=== PATIENT | male | born 1975 | race Caucasian/White ===

== ENCOUNTER → 2017-08-16 07:56 | Outpatient (CLI) | payer MEDICAID ==
[2016-01-02 12:28] VITALS: BMI 56.6
[~2017-08-16 07:56] MED LIST: COREG25 MG PO; FUROSEMIDE20 MG PO; LISINOPRIL5 MG PO; POTASSIUM CHLOR8 ME1 PO
== END | disposition home or self-care (01) ==
LOC: D.RT 07:56
DX: R06.02 Shortness of breath (principal)

== ENCOUNTER → 2017-09-14 09:53 | Outpatient (CLI) | payer MEDICAID ==
[2016-01-02 12:28] VITALS: BMI 56.6
--- NOTE | ~2017-09-14 | EC ---
PATIENT:RJ MAST DATE OF SERVICE: 09/14/17 SEX: M MEDICAL RECORD: [id number] DATE OF : [birth year] [facility] AGE OF PATIENT: 42 ADMISSION DATE: 09/14/17 REFERRING PHYSICIAN: INTERPRETING PHYSICIAN: MARYANN SHAW MD ECHOCARDIOGRAM REPORT ECHO CHARGES 4 ECHO COMPLETE Date: 09/14 CLINICAL DIAGNOSIS: DYSPNEA/HTN/CHF/CARDIOMYOPATHY ECHOCARDIOGRAPHIC MEASUREMENTS (adult normal given) AC root (d.<3.7cm) 3.4 cm LV Septum d (<1.2 cm> 1.7 cm Valve Excursion 2.0 cm LV Septum (systole) 2.3 cm Left Atria (s.<4.0cm> 3.8 cm LVPW d(<1.2cm) 1.6 cm RV (d.<2.3cm) 2.3 cm LVPW (sytole) 2.3 cm LV diastole(<5.6CM) 6.3 cm MV E-F(>70mm/sec) cm LV systole 4.5 cm LVOT Diameter 2.2 cm MV exc.(>10mm) cm Est.ejection fraction (50-75%) % DOPPLER: LVIT cm/sec A 73.0 cm/sec E 107 cm/sec LA cm/sec RVSP 18.4 mmHg LVOT 107 cm/sec AOP1/2T m/s Asc. Ao 208 cm/sec RVOT 118 cm/sec RA cm/sec PA 175 cm/sec AV Gradient Peak 17.3 mmHg AV Mean 10.4 mmHg AV Area 1.9 cm MV Gradient Peak 5.1 mmHg MV Mean 2.1 mmHg MV Area cm COMMENTS: Private Duty Nurse: Kandis BRONSON Metabolic Specialist: Jean Shaw TAPE# PACS Pericardial Effusion N DATE OF SERVICE: 09/14/2017 PROCEDURE: Transthoracic echocardiogram. FINDINGS: This was a very difficult imaging on this patient. Endocardial structures and valvular structures are difficult to visualize. The left ventricle appears to be overall normal in function, possibly mildly dilated. Again, endocardial surface is not well visualized. The overall aortic and mitral valve are grossly normal by Doppler interrogation as well as ECHOCARDIOGRAM REPORT [id number] RJ MAST tricuspid and pulmonary valves were grossly normal. There is no obvious pericardial effusion. Again, it would be reasonable to repeat this study with contrast enhancement if it was difficult visualization because of the patient's habitus. He does have a history of cardiomyopathy. Overall, the function on this patient appears to be grossly normal. I do not see any obvious wall motion abnormalities. CONCLUSION: The patient has evidence of mild hypertensive heart disease and mildly dilated left ventricle. May be reasonable to go forward with contrast at echocardiogram for better visualization. TRANSINT:[id number] Voice Confirmation ID: [id number] DOCUMENT ID: [id number] MARYANN SHAW MD at 0719 CC: [id number] DICTATION DATE: 09/18/17 1053 ELECTRICIAN TELEPHONE: 09/18/17 1312 DEP CLI 09/14/17 [id number] [place] [address]
== END | disposition home or self-care (01) ==
LOC: D.ECHO 09:53
DX: R06.00 Dyspnea, unspecified (principal); I10 Essential (primary) hypertension; I50.9 Heart failure, unspecified; I42.9 Cardiomyopathy, unspecified

== ENCOUNTER 2018-03-25 21:10 | Emergency (ER) | payer MEDICAID ==
[~2018-03-25] VITALS: Ht 190.5 cm; Wt 190.9 kg
[2018-03-25 21:31] VITALS: Ht 190.5 cm; Wt 190.9 kg
[2018-03-26] MEDS ORDERED: AUGMENTIN 875-11 TAB PO (00:26)
[2018-03-26 00:50] VITALS: BP 132/78
== END 2018-03-26 00:50 | disposition home or self-care (01) ==
LOC: D.ER 21:10
DX: K04.7 Periapical abscess without sinus (principal); K02.9 Dental caries, unspecified; I10 Essential (primary) hypertension; F17.200 Nicotine dependence, unspecified, uncomplicated

== ENCOUNTER 2018-05-05 22:56 | Emergency (ER) | payer MEDICAID ==
[~2018-05-05] VITALS: Ht 190.5 cm; Wt 190.9 kg
[~2018-05-05 22:56] MED LIST changes: +AUGMENTIN 875-11 TAB PO
[2018-05-05 23:00] VITALS: Ht 190.5 cm; Wt 190.9 kg
[2018-05-05] MEDS ORDERED: CLEOCIN HCL300 MG PO (23:53)
[2018-05-05] MEDS ORDERED: VOLTAREN75 MG PO (23:54)
[2018-05-06 01:06] VITALS: BP 148/90
== END 2018-05-06 01:06 | disposition home or self-care (01) ==
LOC: D.ER 22:56
DX: K04.7 Periapical abscess without sinus (principal); K08.89 Other specified disorders of teeth and supporting structures; I10 Essential (primary) hypertension

== ENCOUNTER 2020-07-30 10:27 | Emergency (ER) | payer MEDICAID ==
[~2020-07-30] VITALS: Ht 190.5 cm; Wt 186.4 kg
[~2020-07-30 10:27] MED LIST changes: +CLEOCIN HCL300 MG PO; +DICLOFENAC SODI50 MG PO; +FLOMAX0.4 MG PO; +HYDROCODON-ACE1 EAC7 PO; +KEFLEX500 MG PO; +VOLTAREN75 MG PO; +ZOFRAN ODT4 MG/UDTAB PO
[2020-07-30 10:38] VITALS: Ht 190.5 cm; Wt 186.4 kg
[2020-07-30 10:52] LABS: BASOPHILS 0.6 % (0-2); HEMOGLOBIN 14.4 g/dL (13.5-17.5); MCH 30.2 pg (26.0-34.0); MCHC 34.3 g/dL (31.0-37.0); MEAN PLATELET VOLUME 7.5 fL (7.4-10.4); MONOCYTES 6.9 % (2-11); NEUTROPHILS 72.5 % (40-80); RBC 4.77 10x6/uL (4.20-6.10); RDW 14.2 % (11.5-14.5); WBC 11.9 10x3/uL (4.8-10.8)
[2020-07-30 10:54] LABS: PLATELET COUNT 257 10x3/uL (130-400)
[2020-07-30] MEDS ORDERED: ZOCOR10 MG PO (11:03)
[2020-07-30] MEDS ORDERED: GLUCOPHAGE500 MG PO (11:03)
[2020-07-30 11:05] LABS: CALC OSMOLALITY 282 mosm/kg (275-300); CALCIUM 9.2 mg/dL (8.5-10.1); CARBON DIOXIDE 25.4 mmol/L (21.0-32.0); CHLORIDE - SERUM 100 mmol/L (98-107); CREATININE - SERUM 1.1 mg/dL (0.6-1.3); GLUCOSE 181 mg/dL (74-106); POTASSIUM - SERUM 4.8 mmol/L (3.5-5.1); SODIUM 137 mmol/L (136-145); UREA NITROGEN 25 mg/dL (7-18); eGFR NON AFRICAN AMERICAN 77 mL/min (90-120)
[2020-07-30 11:13] LABS: ALBUMIN 3.5 g/dL (3.4-5.0); ALKALINE PHOSPHATASE 63 U/L (30-120); ALT (SGPT) 50 U/L (10-68); AMYLASE - SERUM 27 U/L (25-115); BILIRUBIN - TOTAL 0.47 mg/dL (0.2-1.3); LIPASE 81 U/L (73-393); PROTEIN - SERUM 7.5 g/dL (6.4-8.2); TROPONIN-I < 0.017 ng/mL (0.000-0.060)
[2020-07-30 11:23] LABS: BILIRUBIN NEGATIVE (NEGATIVE); KETONE NEGATIVE (NEGATIVE); NITRITE NEGATIVE (NEGATIVE); UROBILINOGEN NORMAL mg/dL (< 2)
[2020-07-30 11:26] LABS: BACTERIA FEW HPF (NONE SEEN); WHITE CELLS - URINE 2 HPF (0-1)
[2020-07-30 12:59] VITALS: BP 125/80
[2020-07-30] MEDS ORDERED: HYDROCODONE-AC1 EAC2 PO (14:09)
== END 2020-07-30 14:29 | disposition home or self-care (01) ==
LOC: D.ER 10:27
PROVIDERS: Emergency Medicine
DX: N20.0 Calculus of kidney (principal); I10 Essential (primary) hypertension; R10.9 Unspecified abdominal pain